=== PATIENT | male | born 1990 | race Caucasian/White ===

== ENCOUNTER 2019-03-10 18:26 | Emergency (ER) | payer SELFPAY ==
[~2019-03-10] VITALS: Ht 180.3 cm; Wt 81.6 kg
[2019-03-10 18:48] VITALS: BP 107/67
--- NOTE | 2019-03-10 19:52 | NUR ---
PT LEFT WITHOUT ACI.
== END 2019-03-10 19:56 | disposition home or self-care (01) ==
LOC: ER 18:30
DX: S01.81XA Laceration without foreign body of other part of head, initial encounter (principal); Z60.2 Problems related to living alone; W22.8XXA Striking against or struck by other objects, initial encounter; Y93.89 Activity, other specified; Y92.89 Other specified places as the place of occurrence of the external cause; Y99.8 Other external cause status
CPT/HCPCS: 12011; 99283; A6403